=== PATIENT | male | born 1980 | race Caucasian/White ===

== ENCOUNTER 2017-10-10 17:14 | Emergency (ER) | payer BC ==
[~2017-10-10] VITALS: Ht 182.9 cm; Wt 100.0 kg
[~2017-10-10 17:14] MED LIST: FLEX10TA PO; PERC5TAB12 PO
[2017-10-10 17:59] VITALS: BP 114/74; PULSE 76; RESP 20; TEMP 99; O2SAT 96
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
[2017-10-10] MEDS ORDERED: SODIUM CHLORID 0.9% 500 ML INJ 500 ML IV ONE (19:30)
[2017-10-10] MEDS ORDERED: PANTOPRAZOLE SODIUM 40 MG VIAL IV PUSH ONE (19:30)
--- NOTE | 2017-10-10 20:06 | RADRPT ---
EXAM DATE: 10/10/2017 7:54 PM EDT AGE/SEX: 37 years / Male INDICATIONS: Possible foreign body in airway. CLINICAL DATA: This is the patient's initial encounter. Patient reports that signs and symptoms have been present for 4 - 6 days and indicates a pain score of 2/10. MEDICAL/SURGICAL HISTORY: . Fusion, cervical. RADIATION DOSE: 17.47 CTDI (mGy) COMPARISON: No prior exams available for comparison. TECHNIQUE: Helical acquisition was performed using a multirow detector CT scanner without contrast. Using automated exposure control and adjustment of the mA and/or kV according to patient size, radiat ion dose was kept as low as reasonably achievable to obtain optimal diagnostic quality images. DICOM format image data is available electronically for review and comparison. FINDINGS: No radiopaque foreign bodies identified within the airway. This previous fusion at C5-6-7. No bony ca nal stenosis. No abnormal soft tissue masses in the neck. No adenopathy. CONCLUSION: 1. No acute findings. Specifically no foreign body identified within the airway. Electronically signed by: Americo Villatoro MD 10/10/2017 8:05 PM EDT
[2017-10-10 20:16] LABS: BASOPHIL # 0.1 TH/MM3 (0-0.2); BASOPHIL % 0.7 % (0.0-2.0); EOSINOPHIL # 0.3 TH/MM3 (0-0.4); EOSINOPHIL % 2.4 % (0.0-4.0); HEMATOCRIT 41.2 % (39.0-51.0); HEMOGLOBIN 14.2 GM/DL (13.0-17.0); LYMPH % 33.2 % (9.0-44.0); LYMPHOCYTE # 3.4 TH/MM3 (1.0-4.8); MEAN CELL VOLUME 92.4 FL (80.0-100.0); MEAN CORPUSCULAR HEMOGLOBIN 31.8 PG (27.0-34.0); MEAN CORPUSCULAR HGB CONC 34.4 % (32.0-36.0); MEAN PLATELET VOLUME 7.8 FL (7.0-11.0); MONO % 6.1 % (0.0-8.0); MONOCYTE # 0.6 TH/MM3 (0-0.9); NEUT % 57.6 % (16.0-70.0); PLATELET COUNT 278 TH/MM3 (150-450); RED BLOOD COUNT 4.46 MIL/MM3 (4.50-5.90); RED CELL DISTRIBUTION WIDTH 12.6 % (11.6-17.2); WHITE BLOOD COUNT 10.4 TH/MM3 (4.0-11.0)
--- NOTE | 2017-10-10 20:17 | RADRPT ---
EXAM DATE: 10/10/2017 7:46 PM EDT AGE/SEX: 37 years / Male INDICATIONS: Foreign body. CLINICAL DATA: This is the patient's initial encounter. Patient reports that signs and symptoms have been present for 1 day and indicates a pain score of 0/10. MEDICAL/SURGICAL HISTORY: None. None. COMPARISON: No prior exams available for comparison. FINDINGS: A single AP view of the chest demonstrates the lungs to be symmetrically aerated without evidence of mass, infiltrate or effusion. The cardiomediastinal contours are unremarkable. Osseous structures a re intact. CONCLUSION: No active disease. Electronically signed by: Americo Villatoro MD 10/10/2017 8:16 PM EDT
[2017-10-10 20:28] LABS: PROTHROMBIN TIME - PATIENT 10.2 SEC (9.8-11.6)
[2017-10-10 20:40] LABS: BICARBONATE 23.7 MEQ/L (21.0-32.0); CREATININE 0.98 MG/DL (0.60-1.30)
[2017-10-10] MEDS ORDERED: PROT40TA PO (20:51)
--- NOTE | 2017-10-11 16:31 | EKG ---
Date Performed: 10/10/2017 Time Performed: 19:35:06 PTAGE: 37 years EKG: Sinus rhythm NORMAL ECG when compared to prior EKG,no significant change PREVIOUS TRACING :03/15/2012 @08.42 DOCTOR: Armin Hathaway Interpretating Date/Time 10/11/2017 16:29:39
== END 2017-10-10 21:42 | disposition home or self-care (01) ==
LOC: NEPE 17:14
DX: R13.10 Dysphagia, unspecified (principal); M54.2 Cervicalgia; Z88.8 Allergy status to other drugs, medicaments and biological substances
CPT/HCPCS: 70490; 71045; 80048; 85025; 85610; 85730; 93005; 96374; 99285; C9113; J7040